=== PATIENT | female | born 1985 ===

== ENCOUNTER 2021-07-31 16:45 | Emergency (ER) | payer SELFPAY ==
[2021-07-31 17:11] VITALS: BP 143/96
--- NOTE | 2021-07-31 18:35 | Emergency Department Report ---
Minor Respiratory - HPI Duration: 1 week Minor Respiratory: Yes Sore Throat, Yes Cough, Yes Shortness of Breath, Yes Fever ( not today) Other History: 36-year-old morbid obese -[place]oc[place] female with no past medical history presents to the emergency room for 1 week history of cough pleuritic chest pain body aches chills dizziness and diarrhea with headache. Patient is unvaccinated for Covid and unvaccinated for flu. She states that she has been taking Tylenol and had a fever that broke yesterday. Patient has not checked for Covid. Patient reports that her chest pain is worse when she takes a deep breath or coughs. Also complains of abdominal pain that she has had for months. She complains of urinary frequency and urgency. <TIM SMITH - Last Filed: 07/31/21 18:41> <CHELSEY HIDALGO - Last Filed: 08/01/21 00:38> - HPI Chief Complaint: Upper Respiratory Infection Stated Complaint: COUGH /COLD SHORTNESS OF BREATH Time Seen by Provider: 07/31/21 18:32 ED Review of Systems ROS: Stated complaint: COUGH /COLD SHORTNESS OF BREATH Other details as noted in HPI Comment: All other systems reviewed and negative Respiratory: cough Cardiovascular: chest pain (with cough) Gastrointestinal: diarrhea. denies: nausea, vomiting Musculoskeletal: myalgia Neurological: headache Psychiatric: denies: anxiety, depression <TIM SMITH - Last Filed: 07/31/21 18:41> ROS: Stated complaint: COUGH /COLD SHORTNESS OF BREATH Other details as noted in HPI <CHELSEY HIDALGO - Last Filed: 08/01/21 00:38> ED Past Medical Hx - Past Medical History Previous Medical History?: No - Surgical History Past Surgical History?: No <TIM SMITH - Last Filed: 07/31/21 18:41> <CHELSEY HIDALGO - Last Filed: 08/01/21 00:38> - Medications Home Medications: Home Medications Medication Instructions Recorded Confirmed Last Taken Type Acetaminophen [Tylenol] 500 mg PO Q6HR PRN #30 tablet 08/01/21 Unknown Rx Ascorbic Acid [Vitamin C] 1,000 mg PO Q12H #30 tablet 08/01/21 Unknown Rx Benzonatate [Tessalon Perles] 100 mg PO Q8HR #30 capsule 08/01/21 Unknown Rx Doxycycline Hyclate 100 mg PO Q12H #20 capsule 08/01/21 Unknown Rx Ondansetron [Zofran Odt] 4 mg PO Q8HR PRN #15 tab.rapdis 08/01/21 Unknown Rx Minor Respiratory Exam - Exam General: Vital signs noted. No distress. Alert and acting appropriately. Neck: Yes Supple, No Adenopathy Lungs: Yes Good Air Exchange, No Wheezes, No Ronchi, No Stridor, No Cough, No Labored Respirations, No Retractions, No Use of Accessory Muscles, No Other Abnormal Lung Sounds Heart: Yes Regular, No Murmur Abdomen: Yes Normal Bowel Sounds, No Tenderness, No Peritoneal Signs Skin: No Rash, No Edema Neurologic: Alert and oriented, no deficits. Musculoskeletal: Unremarkable. <TIM SMITH - Last Filed: 07/31/21 18:41> - Exam General: Vital signs noted. No distress. Alert and acting appropriately. Neurologic: Alert and oriented, no deficits. Musculoskeletal: Unremarkable. <CHELSEY HIDALGO - Last Filed: 08/01/21 00:38> ED Course Vital Signs 07/31/21 17:10 Temperature 97.8 F Pulse Rate 103 H Respiratory 20 Rate Blood Pressure 143/96 [Right] O2 Sat by Pulse 97 Oximetry <TIM SMITH - Last Filed: 07/31/21 18:41> Vital Signs 07/31/21 17:10 Temperature 97.8 F Pulse Rate 103 H Respiratory 20 Rate Blood Pressure 143/96 [Right] O2 Sat by Pulse 97 Oximetry <CHELSEY HIDALGO - Last Filed: 08/01/21 00:38> ED Medical Decision Making - Medical Decision Making 36-year-old morbid obese -[place]oc[place] female with no past medical history presents to the emergency room for 1 week history of cough pleuritic chest pain body aches chills dizziness and diarrhea with headache. Patient is unvaccinated for Covid and unvaccinated for flu. She states that she has been taking Tylenol and had a fever that broke yesterday. Patient has not checked for Covid. Patient reports that her chest pain is worse when she takes a deep breath or coughs. Also complains of abdominal pain that she has had for months. She complains of urinary frequency and urgency. Urinalysis urine test chest x-ray CBC CMP and D-dimer has been ordere d. <TIM SMITH - Last Filed: 07/31/21 18:41> - Lab Data Result diagrams: 07/31/21 18:51 07/31/21 18:51 - Radiology Data Radiology results: report reviewed, image reviewed [facility] [address] [place] [address] XRay Report Signed Patient: ALTA GILLIAM MR#: [id number] 3 : 1985 Acct:[id number] Age/Sex: 36 / F ADM Date: 07/31/21 Loc: ED Attending Dr: Ordering Physician: MIKO MILLER Date of Service: 07/31/21 Procedure(s): XR chest routine 2V Accession Number(s): [id number] cc: MIKO MILLER Fluoro Time In Minutes: CHEST 2 VIEWS INDICATION / CLINICAL INFORMATION: cough. COMPARISON: None available. FINDINGS: SUPPORT DEVICES: None. HEART / MEDIASTINUM: No significant abnormality. LUNGS / PLEURA: No significant pulmonary or pleural abnormality. No pneumothorax. ADDITIONAL FINDINGS: No significant additional findings. IMPRESSION: 1. No acute findings. Signer Name: Keven Lara MD Signed: 07/31/2021 7:08 PM Workstation Name: [id number] Transcribed By: TL Dictated By: Keven Lara MD Electronically Authenticated By: Keven Lara MD Signed Date/Time: 07/31/211907 DD/ 07 TD/TT: [facility] [address] [place] [address] Cat Scan Report Signed Patient: ALTA GILLIAM MR#: [id number] 3 : 1985 Acct:[id number] Age/Sex: 36 / F ADM Date: 07/31/21 Loc: ED Attending Dr: Ordering Physician: MIKO MILLER Date of Service: 07/31/21 Procedure(s): CT angio chest Accession Number(s): [id number] cc: MIKO MILLER CTA CHEST WITH CONTRAST INDICATION / CLINICAL INFORMATION: Shortness of breath pleuritic elevated D- dimer. TECHNIQUE: Axial CT images were obtained through the chest after injection of 100 cc of Omnipaque 350 IV contrast. 3 plane MIP and/or 3D reconstructions were produced. All CT scans at this location are performed using CT dose reduction for ALARA by means of automated exposure control. COMPARISON: Chest radiograph from earlier in the day FINDINGS: PULMONARY ARTERIES: No central or segmental pulmonary emboli. THORACIC AORTA: No significant abnormality. HEART: No significant abnormality. CORONARY ARTERY CALCIFICATION: None. MEDIASTINUM / BYRON: No significant abnormality. PLEURA: No pleural effusion. No pneumothorax. LUNGS: There are scattered groundglass opacities throughout the lungs. Involving the left upper lobe there is a subpleural nodular density measuring 2.4 x 1.2 x 1.9 cm. ADDITIONAL FINDINGS: None. UPPER ABDOMEN: No acute findings. SKELETAL STRUCTURES: No significant osseous abnormality. IMPRESSION: 1. No CT evidence for central or segmental pulmonary embolism. 2. There are scattered groundglass opacities throughout the lungs. These most likely represent atypical infectious process such as Covid pneumonia. 3. There is also prominent nodular density involving subpleural aspect of the left upper lobe measuring approximately 2.4 x 1.2 x 1.9 cm. This is nonspecific and may represent an additional focus of infection versus a postinfectious postinflammatory nodule; however, neoplastic process is not excluded. Follow-up CT is recommended in 3 months. Signer Name: Facundo Tejeda DO Signed: 08/01/2021 12:14 AM Workstation Name: [id number] Transcribed By: MALENA Dictated By: FACUNDO TEJEDA DO Electronically Authenticated By: FACUNDO TEJEDA DO Signed Date/Time: 08/01/2113 DD/ TD/TT: - Medical Decision Making I assumed care of the patient from my colleague Ms. Olsen LEYLA at shift change at 2100 hrs. Patient at the time was awaiting CTA chest to be performed Following a positive D-dimer level. Lab test results were reviewed and are all nonactionable except for elevated D-dimer. Chest x-ray showed no acute cardiopulmonary abnormalities or pneumonitis. CTA chest showed No CT evidence for central or segmental pulmonary embolism. It however showed scattered groundglass opacities throughout the lungs. These most likely represent atypical infectious process such as Covid pneumonia. In addition it also showed prominent nodular density involving subpleural aspect of the left upper lobe measuring approximately 2.4 x 1.2 x 1.9 cm. This is nonspecific and may represent an additional focus of infection versus a postinfectious postinflammatory nodule; however, neoplastic process is not excluded. Follow-up CT is recommended in 3 months. Therefore based on the fact that the patient had symptoms of COVID-19, patient was initially empirically treated in the ED with Rocephin 1 g IV x1+ azithromycin 500 mg p.o. x1, and patient oxygen saturation is 97 to 99% in room air. Patient was discharged home on medications and advised to go and get tested for COVID-19 viral infection in any of the outpatient facilities, and if positive to self quarantine at home for 10 days. Patient was also advised to follow-up with her primary care physician in 7 to 10 days for reevaluation if she is not positive for COVID-19 however follow-up after her self quarantine time and. Patient was otherwise advised to return to the ED immediately if symptoms get worse. - Differential Diagnosis Pneumonia; bronchitis; COVID-19; URI; sinusitis; seasonal allergies; PE <CHELSEY HIDALGO - Last Filed: 08/01/21 00:38> Critical care attestation.: If time is entered above; I have spent that time in minutes in the direct care of this critically ill patient, excluding procedure time. <TIM SMITH - Last Filed: 07/31/21 18:41> Critical care attestation.: If time is entered above; I have spent that time in minutes in the direct care of this critically ill patient, excluding procedure time. <GWENCHELSEY - Last Filed: 08/01/21 00:38> ED Disposition <TIM SMITH - Last Filed: 07/31/21 18:41> Is pt being admited?: No Does the pt Need Aspirin: No Time of Disposition: 00:30 <DONNYLOUISACHELSEY - Last Filed: 08/01/21 00:38> Clinical Impression: Acute upper respiratory infection, Suspected 2019 novel coronavirus infection, Acute bronchitis due to COVID-19 virus Community acquired pneumonia Qualifiers: Laterality: unspecified laterality Qualified Code(s): J18.9 - Pneumonia, unspecified organism Disposition: 01 HOME / SELF CARE / HOMELESS Condition: Stable Instructions: Bacterial Pneumonia (ED), Upper Respiratory Infection, Adult, [id number], Community-Acquired Pneumonia, Adult, [id number], Acute Bronchitis (ED) Additional Instructions: All lab test results were reviewed and are all nonactionable. Chest x-ray showed no acute cardiopulmonary abnormalities or pneumonitis. Chest CTA showed no evidence of PE, but significant diffuse patchy of opacities or infiltrates suspected to be due to COVID-19 viral infection or atypical pneumonia. Therefore take medications with food, drink plenty of fluids and follow-up with your primary care physician after 10 days. Ensure that you get tested for COVID-19 viral infection in any of the outpatient facilities and if positive self quarantine at home for 10 days while taking medications prescribed. Return to the ED immediately if your symptoms get worse. Prescriptions: Acetaminophen [Tylenol] 500 mg PO Q6HR PRN #30 tablet PRN Reason: pain or fever Doxycycline Hyclate 100 mg PO Q12H #20 capsule Benzonatate [Tessalon Perles] 100 mg PO Q8HR #30 capsule Ascorbic Acid [Vitamin C] 1,000 mg PO Q12H #30 tablet Ondansetron [Zofran Odt] 4 mg PO Q8HR PRN #15 tab.rapdis PRN Reason: Nausea Referrals: PRIMARY CARE, [Primary Care Provider] - 3-5 Days [facility] [Provider Group] - 7-10 days Print Language: AMERICAN
--- NOTE | 2021-07-31 19:12 | XRay Report ---
CHEST 2 VIEWS INDICATION / CLINICAL INFORMATION: cough. COMPARISON: None available. FINDINGS: SUPPORT DEVICES: None. HEART / MEDIASTINUM: No significant abnormality. LUNGS / PLEURA: No significant pulmonary or pleural abnormality. No pneumothorax. ADDITIONAL FINDINGS: No significant additional findings. IMPRESSION: 1. No acute findings. Signer Name: Keven Lara MD Signed: 07/31/2021 7:08 PM Workstation Name: [id number]
[2021-07-31 19:29] LABS: Basophils # (Auto) 0.1 K/mm3 (0.0-0.1); Basophils % (Auto) 2.3 % (0.0-1.8); Eosinophils % (Auto) 0.1 % (0.0-4.3); Hematocrit 42.8 % (30.3-42.9); Hemoglobin 13.5 gm/dl (10.1-14.3); Lymphocytes % (Auto) 50.9 % (13.4-35.0); Mean Corpuscular HGB Conc 32 % (30-34); Mean Corpuscular Volume 87 fl (79-97); Monocytes # (Auto) 0.5 K/mm3 (0.0-0.8); Monocytes % (Auto) 8.7 % (0.0-7.3); Platelet Count 273 K/mm3 (140-440); Red Cell Distribution Width 14.9 % (13.2-15.2)
[2021-07-31 19:32] LABS: Alanine Aminotransferase 35 units/L (7-56); BUN/Creatinine Ratio 16; Blood Urea Nitrogen 13 mg/dL (7-17); Calcium 8.7 mg/dL (8.4-10.2); Hemolysis Index 47
[2021-07-31 23:06] LABS: Bilirubin,Urine NEG (Negative); Blood,Urine NEG (Negative); Color,Urine Yellow (Yellow); Mucus,Urine FEW /HPF; RBC,Urine < 1.0 /HPF (0.0-6.0); Urobilinogen,Urine < 2.0 mg/dL (<2.0)
[2021-07-31 23:14] LABS: HCG Qualitative,Urine Negative (Negative)
--- NOTE | 2021-08-01 00:18 | Cat Scan Report ---
CTA CHEST WITH CONTRAST INDICATION / CLINICAL INFORMATION: Shortness of breath pleuritic elevated D-dimer. TECHNIQUE: Axial CT images were obtained through the chest after injection of 100 cc of Omnipaque 350 IV contrast. 3 plane MIP and/or 3D reconstructions were produced. All CT scans at this location are performed using CT dose reduction for ALARA by means of automated exposure control. COMPARISON: Chest radiograph from earlier in the day FINDINGS: PULMONARY ARTERIES: No central or segmental pulmonary emboli. THORACIC AORTA: No significant abnormality. HEART: No significant abnormality. CORONARY ARTERY CALCIFICATION: None. MEDIASTINUM / BYRON: No significant abnormality. PLEURA: No pleural effusion. No pneumothorax. LUNGS: There are scattered groundglass opacities throughout the lungs. Involving the left upper lobe there is a subpleural nodular density measuring 2.4 x 1.2 x 1.9 cm. ADDITIONAL FINDINGS: None. UPPER ABDOMEN: No acute findings. SKELETAL STRUCTURES: No significant osseous abnormality. IMPRESSION: 1. No CT evidence for central or segmental pulmonary embolism. 2. There are scattered groundglass opacities throughout the lungs. These most likely represent atypic al infectious process such as Covid pneumonia. 3. There is also prominent nodular density involving subpleural aspect of the left upper lobe measuri ng approximately 2.4 x 1.2 x 1.9 cm. This is nonspecific and may represent an additional focus of inf ection versus a postinfectious postinflammatory nodule; however, neoplastic process is not excluded. Follow-up CT is recommended in 3 months. Signer Name: Facundo Mays DO Signed: 08/01/2021 12:14 AM Workstation Name: [id number]
[2021-08-01] MEDS ORDERED: AZITHROMYCIN 250 MG TAB PO ONE (00:33)
[2021-08-01] MEDS ORDERED: KETOROLAC 30 MG/1 ML INJ IV ONE (00:33)
[2021-08-01] MEDS ORDERED: cefTRIAXone/NS 1 GM/50 ML 1 GM/50 ML BAG IV ONE (00:33)
== END 2021-08-01 02:00 | disposition home or self-care (01) ==
LOC: ED 16:45
DX: U07.1 COVID-19 (principal); J20.8 Acute bronchitis due to other specified organisms; J18.9 Pneumonia, unspecified organism; J06.9 Acute upper respiratory infection, unspecified
CPT/HCPCS: 36415; 71046; 71275; 80053; 81001; 81025; 85025; 85379; 96365; 96375; 99284; J0696; J1885; Q9967